=== PATIENT | male | born 1990 | race Caucasian/White ===

== ENCOUNTER 2016-11-30 07:50 | Emergency (ER) | payer MEDICAID, OTHER ==
--- NOTE | 2016-11-30 08:05 | ED Physician Chart ---
Chief Complaint/HPI - Patient Information Date Seen:: 11/30/16 Time Seen:: 07:57 Chief Complaint:: Eye floaters in both eyes for about 3 days. History of Present Illness:: As above. Pt has noticed floaters in both eyes when he was intensively reading a computer screen about 3 days ago. No light flash or curtain sensation in his vision. Pt overall feels better with decrease in floaters over past 2 days.. Pt has h/o myopia. No eye pain. No blurry vision or diplopia. No N/V. No ISSA. Allergies:: Allergies Allergy/AdvReac Type Severity Reaction Status Date / Time No Known Allergies Allergy Verified 11/30/16 07:59 Vitals:: see Nurse Note. Historian:: Patient Family MD/PCP:: Unknown LMP:: N/A Review:: Nurse's Note Reviewed Review of Systems - Review of Systems General/Constitutional: No fever, No chills, No weight loss, No weakness Skin: No skin lesions, No rash, No bruising Head: No headache, No light-headedness Eyes: No loss of vision, No pain, No diplopia, Other (Eye floaters in both eyes , see HPI.) ENT: No earache, No nasal drainage, No sore throat, No tinnitus Neck: No neck pain, No swelling, No thyromegaly, No stiffness, No mass noted Cardio Vascular: No chest pain, No palpitations, No edema Pulmonary: No SOB, No cough, No sputum, No wheezing GI: No nausea, No vomiting, No diarrhea, No pain G/U: No dysuria, No frequency, No hematuria Musculoskeletal: No bone or joint pain, No back pain, No muscle pain Endocrine: No polyuria, No polydipsia Psychiatric: No prior psych history Hematopoietic: No bruising, No lymphadenopathy Allergic/Immuno: No urticaria, No angioedema Neurological: No syncope, No focal symptoms, No weakness, No paresthesia, No headache, No seizure, No dizziness, No confusion, No vertigo Past Medical History - Past Medical History Past Medical History: HTN, Dyslipidemia Family History: Heart disease (MGM) Social History: Non Smoker, Alcohol (rare use), No Drug Use, Single, Employed, Other (lives with his aunt and uncle.) Employment:: Maintenance in a store. Surgical History: None Psychiatricy History: None Medication: Reviewed Family Medical History - Family Member Mother History Unknown: Yes Physical Exam - Physical Examination General/Constitutional: Awake, Well-developed, well-nourished, Alert, No distress, GCS 15, Non-toxic appearing, Ambulatory Other Gen/Cons comments:: Breathes comfortably, speaks clearly, interacts normally, and ambulates without difficulty. Head: Atraumatic Eyes: Lids, conjuctiva normal, PERRL, EOMI Other Eyes comments:: Fundiscopic exams in both eyes: disks are flat, anterior and posterior chambers are clear. No definite abnormality detected in retina. Skin: Nl inspection, No rash, No skin lesions, No ecchymosis, Well hydrated, No lymphadenopathy ENMT: External ears, nose nl, Nasal exam nl, Oropharynx nl Neck: Nontender, Full ROM w/o pain, No nuchal rigidity, No mass, No stridor Respiratory: Nl effort/Exclusion Cardio Vascular: RRR, No murmur, gallop, rubs, NL S1 S2 Extremities: No edema Neuro/Psych: Alert/oriented (oriented x 3), Judgement/insight normal, Mood normal, Normal gait, No focal deficits ED Septic Shock - . Is Septic Shock (SBP<90, OR Lactate>4 mmol\L) present?: No Reassessment (Disposition) - Reassessment Reassessment:: 0900 Case was discussed with Dr. Alcaraz, emery wheel molder, at about 0853 with pertinent H & P discussed. He recommended pt to be evaluated at his office tomorrow morning. No specific treatment at the present. 0903 Pt remains well. Discussed with pt about treatment plan. Pt requests to go home now. Aftercare instructions have been given. Reassessment Condition:: Improved - Diagnosis Diagnosis:: Eye floaters by hx, stable and improved. - Aftercare/Follow up Instructions Aftercare/Follow-Up Instructions:: Refer to Discharge Instructions Notes:: Continue present care. Keep well hydrated. Avoid eye straining. F/U with Dr. [facility] AM. Dr. Alcaraz's office phone number was given to pt to call tomorrow morning to confirm appointment. Return to ER immediately if condition worsens or if any further questions/problems. Medication Prescribed:: None - Patient Disposition Discharge/Transfer:: Home Time:: 09:05 Condition at Disposition:: Stable, Improved ED Discharge Plan - Patient Disposition Admit/Discharge/Transfer: PT DISCHARGED HOME Condition at Disposition: Stable Instructions: Eye - Floaters Additional Instructions: No heavy lifting. Avoid bending over. Follow up with Dr. Alcaraz. If vision worsens, you see a curtain over your field of vision, then to to Emergency Room immediately. Accepting Physician: Radha Alcaraz [Active] - Forms: Work Release Form
== END 2016-11-30 09:21 | disposition home or self-care (01) ==
LOC: ER 07:50
DX: H43.393 Other vitreous opacities, bilateral (principal); I10 Essential (primary) hypertension; E78.5 Hyperlipidemia, unspecified
CPT/HCPCS: Z7502

== ENCOUNTER 2018-03-02 23:06 | Emergency (ER) | payer OTHER ==
--- NOTE | 2018-03-02 23:32 | ED Physician Chart ---
ED Chief Complaint/HPI - Patient Information Date Seen:: 03/02/18 Time Seen:: 23:27 Chief Complaint:: Palpitation and dizziness History of Present Illness:: 27 yo male developed palpitation and dizziness for 30 minutes while lifting a box 2 hours ago. After taking a break, patient felt better. Patient had similar episode every 2 months for 1 year. At ER, patient denied any chest pain, chest pressure or dizziness. Allergies:: Allergies Allergy/AdvReac Type Severity Reaction Status Date / Time No Known Allergies Allergy Verified 03/02/18 23:15 Vitals:: Vital Signs - 8 hr 03/02/18 23:06 Temp 97.9 F HR 101 RR 18 BP 142/86 O2 Sat % 98 ED Review of Systems - Review of Systems General/Constitutional: No fever Skin: No rash Head: No headache Eyes: No pain ENT: No earache Neck: No neck pain Cardio Vascular: No chest pain Pulmonary: No SOB GI: No nausea, No vomiting Musculoskeletal: No bone or joint pain Neurological: No syncope, No focal symptoms ED Past Medical History - Past Medical History Past Medical History: Dyslipidemia (Hyperlipidemia) Social History: Non Smoker, Alcohol (occasionally), No Drug Use Surgical History: other (wisdom teeth removal) Family Medical History - Family Member Mother History Unknown: Yes Ethnicity: Non- ED Physical Exam - Physical Examination General/Constitutional: Awake Head: Atraumatic Eyes: PERRL Skin: No skin lesions ENMT: Nasal exam nl Neck: No nuchal rigidity Respiratory: No Wheeze/Rhonchi/Rales Cardio Vascular: RRR, No murmur, gallop, rubs, NL S1 S2 GI: No tenderness/rebounding/guarding Extremities: normal strength in all extremities Neuro/Psych: No focal deficits ED Labs/Radiology/EKG Results - Lab Results Results: Laboratory Last Values WBC 11.8 Th/cmm (4.8-10.8) H 03/02/18 23:50 RBC 5.44 Mil/cmm (4.30-5.70) 03/02/18 23:50 Hgb 15.9 gm/dL (12-16) 03/02/18 23:50 Hct 47.3 % (41.0-60) 03/02/18 23:50 MCV 87.0 fl (80-99) 03/02/18 23:50 MCH 29.2 pg (26.0-30.0) 03/02/18 23:50 MCHC Differential 33.6 pg (28.0-36.0) 03/02/18 23:50 RDW 11.7 % (11.5-20.0) 03/02/18 23:50 Plt Count 307 Th/cmm (150-400) 03/02/18 23:50 MPV 7.7 fl 03/02/18 23:50 Neutrophils % 77.6 % (40.0-80.0) 03/02/18 23:50 Lymphocytes % 13.5 % (20.0-50.0) L 03/02/18 23:50 Monocytes % 6.9 % (2.0-10.0) 03/02/18 23:50 Eosinophils % 1.5 % (0.0-5.0) 03/02/18 23:50 Basophils % 0.5 % (0.0-2.0) 03/02/18 23:50 Sodium 133 mEq/L (136-145) L 03/02/18 23:50 Potassium 3.6 mEq/L (3.5-5.1) 03/02/18 23:50 Chloride 98 mEq/L (98-107) 03/02/18 23:50 Carbon Dioxide 27.8 mEq/L (21.0-31.0) 03/02/18 23:50 Anion Gap 10.8 (7.0-16.0) 03/02/18 23:50 BUN 9 mg/dL (7-25) 03/02/18 23:50 Creatinine 1.0 mg/dL (0.7-1.3) 03/02/18 23:50 Est GFR ( Amer) > 60.0 ml/min (>90) 03/02/18 23:50 Est GFR (Non-Af Amer) > 60.0 ml/min 03/02/18 23:50 BUN/Creatinine Ratio 9.0 03/02/18 23:50 Glucose 90 mg/dL (70-105) 03/02/18 23:50 Whole Bld Lactic Acid 1.69 mmol/L (0.60-1.99) 03/02/18 23:50 Calcium 10.0 mg/dL (8.6-10.3) 03/02/18 23:50 Total Bilirubin 0.5 mg/dL (0.3-1.0) 03/02/18 23:50 AST 35 U/L (13-39) 03/02/18 23:50 ALT 64 U/L (7-52) H 03/02/18 23:50 Alkaline Phosphatase 104 U/L (34-104) 03/02/18 23:50 Troponin I 0.01 ng/mL (0.01-0.05) 03/02/18 23:50 B-Natriuretic Peptide < 5.0 pg/mL (5.0-100.0) L 03/02/18 23:50 Total Protein 7.9 gm/dL (6.0-8.3) 03/02/18 23:50 Albumin 5.1 gm/dL (4.2-5.5) 03/02/18 23:50 Globulin 2.8 gm/dL 03/02/18 23:50 Albumin/Globulin Ratio 1.8 (1.0-1.8) 03/02/18 23:50 Triglycerides 81 mg/dL (<150) 03/02/18 23:50 Cholesterol 148 mg/dL (<200) 03/02/18 23:50 LDL Cholesterol Direct 95 mg/dL (75-193) 03/02/18 23:50 HDL Cholesterol 39 mg/dL (23-92) 03/02/18 23:50 Urine Source RANDOM 03/02/18 00:00 Urine Color YELLOW 03/02/18 00:00 Urine Clarity CLEAR (CLEAR) 03/02/18 00:00 Urine pH 6.0 (4.6 - 8.0) 03/02/18 00:00 Ur Specific Luther <= 1.005 (1.005-1.030) 03/02/18 00:00 Urine Protein NEGATIVE mg/dL (NEGATIVE) 03/02/18 00:00 Urine Glucose (UA) NEGATIVE mg/dL (NEGATIVE) 03/02/18 00:00 Urine Ketones NEGATIVE mg/dL (NEGATIVE) 03/02/18 00:00 Urine Blood NEGATIVE (NEGATIVE) 03/02/18 00:00 Urine Nitrate NEGATIVE (NEGATIVE) 03/02/18 00:00 Urine Bilirubin NEGATIVE (NEGATIVE) 03/02/18 00:00 Urine Urobilinogen 0.2 E.U./dL (0.2 - 1.0) 03/02/18 00:00 Ur Leukocyte Esterase NEGATIVE (NEGATIVE) 03/02/18 00:00 Urine Opiates Screen NEGATIVE (NEGATIVE) 03/02/18 00:00 Urine Methadone Screen NEGATIVE (NEGATIVE) 03/02/18 00:00 Ur Barbiturates Screen NEGATIVE (NEGATIVE) 03/02/18 00:00 Ur Tricyclics Screen NEGATIVE (NEGATIVE) 03/02/18 00:00 Ur Phencyclidine Scrn NEGATIVE (NEGATIVE) 03/02/18 00:00 Amphetamines Screen NEGATIVE (NEGATIVE) 03/02/18 00:00 U Methamphetamines Scrn NEGATIVE (NEGATIVE) 03/02/18 00:00 U Benzodiazepines Scrn NEGATIVE (NEGATIVE) 03/02/18 00:00 U Cocaine Metab Screen NEGATIVE (NEGATIVE) 03/02/18 00:00 U Cannabinoids Screen NEGATIVE (NEGATIVE) 03/02/18 00:00 - Radiology Results Results: CXR: no focal consolidation - EKG Interpretations EKG Time:: 23:45 Rate & Rhythm: 103 bpm, sinus tachycardia Comins: left atrial enlargement Intervals: OH 186, QRS 92 ED Assessment - Assessment General Assessment: Leukocytosis Hyponatremia Tachycardia Assessment/Comments:: CBC, CMP, UA, Urine drug screen CXR, EKG Blood culture NS 1L IV bolus Rocephin 1g IV D/c home Ciprofloxacin F/u PCP or return to ER if symptoms worsen ED Septic Shock - . Is Septic Shock (SBP<90, OR Lactate>4 mmol\L) present?: No - <6hrs of presentation: Vital Signs: Vital Signs - 8 hr 03/02/18 23:06 Temp 97.9 F HR 101 RR 18 BP 142/86 O2 Sat % 98 ED Reassessment (Disposition) - Reassessment Reassessment Condition:: Improved - Aftercare/Follow up Instructions Medication Prescribed:: Ciprofloxacin 500mg bid x 7 days - Patient Disposition Discharge/Transfer:: Home
[2018-03-02 23:59] LABS: % BASOPHILS 0.5 % (0.0-2.0); % EOSINOPHILS 1.5 % (0.0-5.0); % LYMPHOCYTES 13.5 % (20.0-50.0); % MONOCYTES 6.9 % (2.0-10.0); % NEUTROPHILS 77.6 % (40.0-80.0); BASOPHILE ABSOLUTE 0.1 Th/cumm (0-0.2); EOSINOPHILE ABSOLUTE 0.2 Th/cmm (0.1-0.4); HEMATOCRIT 47.3 % (41.0-60); HEMOGLOBIN 15.9 gm/dL (12-16); LYMPHOCYTE ABSOLUTE 1.6 Th/cmm (1.5-3.0); MEAN CORPUSCULAR HEMOGLOBIN 29.2 pg (26.0-30.0); MEAN CORPUSCULAR HGB CONC 33.6 pg (28.0-36.0); MEAN PLATELET VOLUME 7.7 fl; MONOCYTE ABSOLUTE 0.8 Th/cmm (0.3-1.0); NEUTROPHILE ABSOLUTE 9.1 Th/cmm (1.8-8.0); PLATELET COUNT 307 Th/cmm (150-400); RED BLOOD COUNT 5.44 Mil/cmm (4.30-5.70); RED CELL DISTRIBUTION WIDTH 11.7 % (11.5-20.0); WHITE BLOOD COUNT 11.8 Th/cmm (4.8-10.8)
[2018-03-03 00:17] LABS: ALB/GLOB RATIO 1.8 (1.0-1.8); ALBUMIN 5.1 gm/dL (4.2-5.5); ALKALINE PHOSPHATASE 104 U/L (34-104); ANION GAP 10.8 (7.0-16.0); BILIRUBIN,TOTAL 0.5 mg/dL (0.3-1.0); BUN - UREA NITROGEN 9 mg/dL (7-25); CARBON DIOXIDE 27.8 mEq/L (21.0-31.0); CHLORIDE 98 mEq/L (98-107); CHOLESTEROL 148 mg/dL (<200); GFR AFRICAN-AMERICAN > 60.0 ml/min (>90); GFR NON AFRICAN-AMERICAN > 60.0 ml/min; GLUCOSE 90 mg/dL (70-105); HDL -HIGH DENSITY LIPOPROTEIN 39 mg/dL (23-92); POTASSIUM SERUM 3.6 mEq/L (3.5-5.1); SGOT 35 U/L (13-39); SGPT/ALT 64 U/L (7-52); SODIUM SERUM 133 mEq/L (136-145); TOTAL PROTEIN,SERUM 7.9 gm/dL (6.0-8.3); TRIGLYCERIDES 81 mg/dL (<150)
[2018-03-03] MEDS ORDERED: cefTRIAXone 1 GM in Sodium Chloride 0.9% 50 ML IV ONE (00:23)
[2018-03-03] MEDS: Sodium Chloride 0.9% 1,000 ML IV ONE (00:31)
--- NOTE | 2018-03-03 08:16 | Diagnostic Imaging Report ---
Portable chest x-ray History: Shortness of breath Allowing for portable technique the heart size is normal. No focal pulmonary parenchymal processes. No hilar or mediastinal abnormalities. Impression: No acute abnormalities.
== END 2018-03-03 01:40 | disposition home or self-care (01) ==
LOC: ER 23:06
DX: E87.1 Hypo-osmolality and hyponatremia (principal); D72.829 Elevated white blood cell count, unspecified; R00.0 Tachycardia, unspecified; E78.5 Hyperlipidemia, unspecified
CPT/HCPCS: 99285; 96365; 93005; 71045; 84484; 83880; 36415 ×2; 83605; 80307; 85025; 81003; 80053; 80061; 87040 ×2; J0696

== ENCOUNTER 2018-09-20 10:29 | Emergency (ER) | payer OTHER ==
[2018-09-20 11:03] LABS: % BASOPHILS 0.2 % (0.0-2.0); % EOSINOPHILS 1.7 % (0.0-5.0); % LYMPHOCYTES 13.1 % (20.0-50.0); EOSINOPHILE ABSOLUTE 0.1 Th/cmm (0.1-0.4); HEMATOCRIT 45.4 % (41.0-60); HEMOGLOBIN 15.5 gm/dL (12-16); LYMPHOCYTE ABSOLUTE 0.9 Th/cmm (1.5-3.0); MEAN CELL VOLUME 88.4 fl (80-99); MEAN CORPUSCULAR HEMOGLOBIN 30.2 pg (26.0-30.0); MEAN CORPUSCULAR HGB CONC 34.1 pg (28.0-36.0); MEAN PLATELET VOLUME 7.8 fl; MONOCYTE ABSOLUTE 0.4 Th/cmm (0.3-1.0); NEUTROPHILE ABSOLUTE 5.4 Th/cmm (1.8-8.0); PLATELET COUNT 300 Th/cmm (150-400); RED BLOOD COUNT 5.13 Mil/cmm (4.30-5.70); RED CELL DISTRIBUTION WIDTH 11.6 % (11.5-20.0); WHITE BLOOD COUNT 6.8 Th/cmm (4.8-10.8)
--- NOTE | 2018-09-20 11:04 | ED Physician Chart ---
ED Chief Complaint/HPI - Patient Information Date Seen:: 09/20/18 Time Seen:: 10:45 Allergies:: Allergies Allergy/AdvReac Type Severity Reaction Status Date / Time No Known Allergies Allergy Verified 03/02/18 23:15 Vitals:: Vital Signs - 8 hr 09/20/18 10:38 Temp 99.2 F HR 89 RR 16 BP 141/90 O2 Sat % 95 Historian:: Patient (known gerd prilosec helps ran out neg stress neg pmh fh unremarkable ) Review:: Nurse's Note Reviewed (known heartburn stress test neg cardio suggests anxiety ) ED Review of Systems - Review of Systems General/Constitutional: No fever Skin: No skin lesions Head: No headache Eyes: No loss of vision ENT: No earache Neck: No neck pain Cardio Vascular: No chest pain, Palpitations, No PND, No edema Pulmonary: No SOB GI: No nausea, No vomiting Musculoskeletal: No bone or joint pain Psychiatric: Anxiety Hematopoietic: No bruising Allergic/Immuno: No urticaria Neurological: No syncope ED Past Medical History - Past Medical History Past Medical History: PUD/GERD Family History: None Social History: Non Smoker Medication: Reviewed Family Medical History - Family Member Mother History Unknown: Yes Ethnicity: Non- ED Physical Exam - Physical Examination General/Constitutional: Awake, Well-developed, well-nourished, Alert, No distress, GCS 15, Non-toxic appearing Head: Atraumatic Eyes: Lids, conjuctiva normal Skin: Nl inspection ENMT: External ears, nose nl Neck: Full ROM w/o pain Respiratory: Nl effort/Exclusion, Clear to Auscultation Cardio Vascular: RRR, No murmur, gallop, rubs, NL S1 S2 GI: No tenderness/rebounding/guarding : No CVA tenderness Extremities: No tenderness or effusion Neuro/Psych: Alert/oriented, Normal sensory exam, Normal motor strength, Judgement/insight normal, Mood normal Misc: Normal back ED Labs/Radiology/EKG Results - Lab Results Results: gerd hx palpitatiosns lack or prilosec availability will rx prilosec recc zantac education gerd and palpatations scheduled for echo has cardilogist care ED Septic Shock - <6hrs of presentation: Vital Signs: Vital Signs - 8 hr 09/20/18 10:38 Temp 99.2 F HR 89 RR 16 BP 141/90 O2 Sat % 95 ED Reassessment (Disposition) - Reassessment Reassessment Condition:: Unchanged (education gerd cholesterol) - Patient Disposition Discharge/Transfer:: Home
[2018-09-20 11:14] LABS: ANION GAP 11.9 (7.0-16.0); BUN - UREA NITROGEN 13 mg/dL (7-25); CALCIUM SERUM 10.4 mg/dL (8.6-10.3); CARBON DIOXIDE 28.2 mEq/L (21.0-31.0); CHLORIDE 101 mEq/L (98-107); CREATININE - SERUM 0.9 mg/dL (0.7-1.3); GFR AFRICAN-AMERICAN > 60.0 ml/min (>90); GFR NON AFRICAN-AMERICAN > 60.0 ml/min; GLUCOSE 130 mg/dL (70-105); POTASSIUM SERUM 4.1 mEq/L (3.5-5.1); SODIUM SERUM 137 mEq/L (136-145)
== END 2018-09-20 11:55 | disposition home or self-care (01) ==
LOC: ER 10:29
DX: R00.2 Palpitations (principal); F41.9 Anxiety disorder, unspecified; K21.9 Gastro-esophageal reflux disease without esophagitis
CPT/HCPCS: 36415-UA; 80048-TC; 85025-TC; 93005